=== PATIENT | male | born 1950 ===

== ENCOUNTER 2017-09-29 13:17 | Inpatient (IN) | payer OTHER ==
--- NOTE | 2017-09-29 13:53 | C.PDOC ---
History Of Present Illness Tc Paredes is a 66 year old male, with no significant past medical history, who presents to the emergency department for a head injury at the beginning of August. Patient had a CT scan and was found to have intracranial hemorrhage. His daughter was unhappy with the medical care he was receiving so she brought him here. Patient had a repeat outpatient CT scan that showed a hemorrhage. Patient followed up with Dr. Smith, who sent him yesterday to have an MRI which showed an abnormality and advised patient to come to the ER. PMD: García Smith Time Seen by Provider: 09/29/17 13:44 Chief Complaint (Nursing): Medical Clearance History Per: Patient History/Exam Limitations: no limitations Onset/Duration Of Symptoms: Days (x1 month) Reports Recently: Treated By A Physician Past Medical History Reviewed: Historical Data, Nursing Documentation, Vital Signs Vital Signs: Last Vital Signs Temp 98.1 F 09/29/17 13:23 Pulse 59 L 09/29/17 13:23 Resp 18 09/29/17 13:23 BP 167/83 H 09/29/17 13:23 Pulse Ox 100 09/29/17 17:52 - Medical History PMH: HTN Surgical History: No Surg Hx Family History: States: Unknown Family Hx - Social History Hx Tobacco Use: No (Former smoker) Hx Alcohol Use: No Hx Substance Use: No - Immunization History Hx Tetanus Toxoid Vaccination: No Hx Influenza Vaccination: Yes Hx Pneumococcal Vaccination: No Review Of Systems Constitutional: Positive for: Other (head injury) Physical Exam - Physical Exam Appears: No Acute Distress Skin: Normal Color, Warm, Dry Head: Atraumatic, Normacephalic Eye(s): bilateral: Normal Inspection, PERRL, EOMI Neck: Normal ROM, Supple Chest: Symmetrical Cardiovascular: Rhythm Regular Respiratory: Normal Breath Sounds, No Wheezing Gastrointestinal/Abdominal: Normal Exam, Soft, No Tenderness Back: Normal Inspection, No CVA Tenderness Extremity: Normal ROM, No Deformity, No Swelling Neurological/Psych: Oriented x3 (alert), Normal Speech, Normal Motor, Normal Sensation, Other (no focal deficits.) Gait: Steady ED Course And Treatment - Laboratory Results Result Diagrams: 09/29/17 15:16 09/29/17 15:16 Lab Interpretation: Normal O2 Sat by Pulse Oximetry: 100 (RA) Pulse Ox Interpretation: Normal - CT Scan/US MRI brain with contrast Other Rad Studies (CT/US): Read By Radiologist, Radiology Report Reviewed CT/US Interpretation: Accession No. : [id number]. Patient Name / ID : BALA HE / [id number]. Exam Date : 09/29/2017 16:39:48 ( Approved ). Study Comment : Sex / Age : M / 66Y. Creator : Cary Moyer MD. Dictator : Cary Moyer MD. Filter Tip Inspector : Market Research Intern : Cary Moyer MD. Approver2 : Report Date : 09/29/2017 17:33:14. My Comment : . PROCEDURE: MRI BRAIN WITH AND WITHOUT CONTRAST. HISTORY: multiple intracranial hemorrhages. COMPARISON: MRI brain without contrast from 2017. TECHNIQUE: Multiplanar, multisequence MR images of the brain were obtained with and without intravenous contrast enhancement. 14 mL Omniscan was injected intravenously. FINDINGS: HEMORRHAGE: None. DWI: No evidence of an acute or early subacute infarction. BRAIN PARENCHYMA: Since the prior examination, there has been no significant interval change in the size and appearance of multifocal T1 and T2 hyperintense peripheral masses with peripheral T2 hypo intense rim and mild surrounding vasogenic edema in the frontal and temporal lobes, the largest in the left frontal lobe. These masses demonstrate restricted diffusion. There is also subcortical T2/FLAIR hyperintensity in the left frontal lobe and right inferior medial frontal lobe most compatible with old injury. ENHANCEMENT: Enhancement of the multifocal frontal and temporal lobe masses please limited due to intrinsic T1 hyperintensity however these appear to enhance on post-contrast sequences. There is also diffuse smooth dural enhancement. VENTRICLES: There is mild age- related global parenchymal volume loss with proportionate enlargement of the ventricles and cortical sulci. No hydrocele. CRANIUM: There is normal bone marrow signal pattern. ORBITS: Grossly unremarkable. PARANASAL SINUSES/ MASTOIDS: There are bilateral mastoid effusions. The paranasal sinuses are predominantly clear. VASCULAR SYSTEM: Skull base flow voids intact. OTHER FINDINGS: None . IMPRESSION: Apparent mild enhancement in the multifocal frontal and temporal lobe masses, although enhancement is limited due to intrinsic T1 hyperintensity related to subacute hemorrhage. The differential considerations include hemorrhagic metastasis, subacute hypertensive hemorrhages , cavernous malformations, and amyloidosis are also differential considerations. Pyogenic abscess is, lymphoma and toxoplasmosis or less likely differential considerations. Mild diffuse dural enhancement may be reactive however dural metastasis and meningitis are other differential considerations. Reevaluation Time: 18:24 Reassessment Condition: Unchanged - Physician Consult Information Time Consulting Physician Contacted: 18:24 Physician Contacted: Jose Cote Outcome Of Conversation: Case also discussed with Dr Welch. Patient to be admitted for work up of etiology of brain lesions. Medical Decision Making Medical Decision Making: Initial Impression: Head injury Initial Plan: --Reevaluation Disposition - Disposition Disposition: HOSPITALIZED Disposition Time: 18:25 Condition: FAIR - POA Present On Arrival: None - Clinical Impression Clinical Impression: Mass of brain - Scribe Statement Prasanna Bedolla
[2017-09-29 15:20] LABS: BASO # 0.1 K/uL (0.0-0.2); BASO % 1.1 % (0.0-2.0); EOS # 0.1 K/uL (0.0-0.7); EOS % 2.7 % (0.0-4.0); HEMOGLOBIN 15.1 g/dL (12.0-18.0); LYMPH # 1.3 K/uL (1.0-4.3); LYMPH % 25.8 % (20.0-40.0); MEAN CELL VOLUME 95.4 fL (80.0-94.0); MEAN CORPUSCULAR HEMOGLOBIN 32.3 pg (27.0-31.0); MEAN CORPUSCULAR HGB CONC 33.8 g/dL (33.0-37.0); MEAN PLATELET VOLUME 8.5 fL (7.2-11.7); MONO # 0.5 K/uL (0.0-0.8); MONO % 9.2 % (0.0-10.0); NEUT # 3.2 K/uL (1.8-7.0); NEUT % 61.2 % (50.0-75.0); RBC 4.67 Mil/uL (4.40-5.90); RED CELL DISTRIBUTION WIDTH 13.8 % (11.5-14.5); WHITE BLOOD COUNT 5.2 K/uL (4.8-10.8)
[2017-09-29 15:32] LABS: ALB/GLOB RATIO 1.4 (1.0-2.1); ALBUMIN 4.4 g/dL (3.5-5.0); ALT/SGPT 40 U/L (21-72); AST/SGOT 19 U/L (17-59); BLOOD UREA NITROGEN 10 mg/dL (9-20); CALCIUM 9.5 mg/dl (8.6-10.4); GFR AFRICAN-AMERICAN > 60; GFR NON-AFRICAN AMERICAN > 60
[2017-09-29] MEDS ORDERED: Gadodiamide 287 MG/ML VIAL (15ML) IV ONE (16:53)
--- NOTE | 2017-09-29 17:34 | MRI ---
PROCEDURE: MRI BRAIN WITH AND WITHOUT CONTRAST HISTORY: multiple intracranial hemorrhages COMPARISON: MRI brain without contrast from 09/28/2017. TECHNIQUE: Multiplanar, multisequence MR images of the brain were obtained with and without intravenous contrast enhancement. 14 mL Omniscan was injected intravenously. FINDINGS: HEMORRHAGE: None DWI: No evidence of an acute or early subacute infarction. BRAIN PARENCHYMA: Since the prior examination, there has been no significant interval change in the size and appearance of multifocal T1 and T2 hyperintense peripheral masses with peripheral T2 hypo intense rim and mild surrounding vasogenic edema in the frontal and temporal lobes, the largest in the left frontal lobe. These masses demonstrate restricted diffusion. There is also subcortical T2/FLAIR hyperintensity in the left frontal lobe and right inferior medial frontal lobe most compatible with old injury. ENHANCEMENT: Enhancement of the multifocal frontal and temporal lobe masses please limited due to intrinsic T1 hyperintensity however these appear to enhance on post-contrast sequences. There is also diffuse smooth dural enhancement. VENTRICLES: There is mild age-related global parenchymal volume loss with proportionate enlargement of the ventricles and cortical sulci. No hydrocele CRANIUM: There is normal bone marrow signal pattern. ORBITS: Grossly unremarkable. PARANASAL SINUSES/MASTOIDS: There are bilateral mastoid effusions. The paranasal sinuses are predominantly clear. VASCULAR SYSTEM: Skull base flow voids intact. OTHER FINDINGS: None . IMPRESSION: Apparent mild enhancement in the multifocal frontal and temporal lobe masses, although enhancement is limited due to intrinsic T1 hyperintensity related to subacute hemorrhage. The differential considerations include hemorrhagic metastasis, subacute hypertensive hemorrhages, cavernous malformations, and amyloidosis are also differential considerations. Pyogenic abscess is, lymphoma and toxoplasmosis or less likely differential considerations. Mild diffuse dural enhancement may be reactive however dural metastasis and meningitis are other differential considerations.
[2017-09-29] MEDS ORDERED: DiphenhydrAMINE 50 mg/ml Inj IVP PRN (21:26)
[2017-09-29] MEDS: Dexamethasone 4 mg/1 ml IVP SCH (22:13)
[2017-09-30 08:13] LABS: INR 1.1; PROTHROMBIN TIME 12.1 SECONDS (9.7-12.2)
[2017-09-30 08:14] LABS: ALB/GLOB RATIO 1.4 (1.0-2.1); ALBUMIN 4.4 g/dL (3.5-5.0); ALT/SGPT 35 U/L (21-72); AST/SGOT 23 U/L (17-59); BLOOD UREA NITROGEN 10 mg/dL (9-20); GFR AFRICAN-AMERICAN > 60; GFR NON-AFRICAN AMERICAN > 60
[2017-09-30 08:22] LABS: BASO % 0.3 % (0.0-2.0); EOS % 0.2 % (0.0-4.0); HEMOGLOBIN 15.2 g/dL (12.0-18.0); LYMPH # 0.9 K/uL (1.0-4.3); MEAN CELL VOLUME 95.7 fL (80.0-94.0); MEAN CORPUSCULAR HEMOGLOBIN 33.6 pg (27.0-31.0); MEAN CORPUSCULAR HGB CONC 35.1 g/dL (33.0-37.0); MEAN PLATELET VOLUME 8.7 fL (7.2-11.7); MONO # 0.3 K/uL (0.0-0.8); MONO % 3.8 % (0.0-10.0); NEUT % 83.7 % (50.0-75.0); NRBC % 0.1 % (0.0-2.0); RBC 4.54 Mil/uL (4.40-5.90); WHITE BLOOD COUNT 7.2 K/uL (4.8-10.8)
--- NOTE | 2017-09-30 09:24 | MRI ---
PROCEDURE: Magnetic Resonance Angiography Brain HISTORY: brain masses COMPARISON: None available. TECHNIQUE: 3D time of flight MR angiography of the intracranial arteries was performed. Rotating maximum intensity projection images were generated. FINDINGS: INTERNAL CAROTID ARTERIES: Small infundibulum is seen related to a tiny cavernous right ICA branch. The skull base, petrous, cavernous and supraclinoid segments are bilaterally widely patient. ANTERIOR CEREBRAL ARTERIES: Unremarkable. A1 and A2 segments are widely patent. Smaller distal branches unremarkable, as visualized. MIDDLE CEREBRAL ARTERIES: Unremarkable. M1 and M2 segments are widely patent. Perisylvian branches grossly symmetric. POSTERIOR CIRCULATION: Basilar Artery: Unremarkable. Distal Vertebral Arteries: A small fenestration is seen related to the distal left vertebral artery. Posterior Cerebral Arteries: Unremarkable. Posterior Inferior Cerebellar Arteries: Unremarkable. ANEURYSM/ VASCULAR MALFORMATIONS: None. OTHER FINDINGS: None. IMPRESSION: Unremarkable MR angiography of the brain.
[2017-09-30] MEDS: Dexamethasone 4 mg/1 ml IVP SCH (10:11)
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
[2017-09-30] MEDS ORDERED: Iohexol 240 (50 ml) PO ONE ×2 (13:15→14:15)
[2017-09-30 15:56] VITALS: BP 120/75; PULSE 68; RESP 18; TEMP 97.9; O2SAT 97
[2017-09-30] MEDS ORDERED: Iodixanol 320 MG/ML 100 ML BOTTLE IV ONE (16:45)
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
--- NOTE | 2017-09-30 17:54 | CT ---
PROCEDURE: CT Chest, Abdomen and Pelvis with intravenous contrast HISTORY: r/o malignancy COMPARISON: None. TECHNIQUE: IV dose administered: 100 cc Visipaque 320. Radiation dose: Total exam DLP = 675.02 mGy-cm. This CT exam was performed using one or more of the following dose reduction techniques: Automated exposure control, adjustment of the mA and/or kV according to patient size, and/or use of iterative reconstruction technique. FINDINGS: CT CHEST WITH CONTRAST: LUNGS: Clear. No nodule, mass or consolidation. MEDIASTINUM: Unremarkable. Normal caliber aorta and pulmonary arterial trunk. No aortic dissection. Normal size heart. LYMPH NODES: Unremarkable. PLEURA: Unremarkable. No pneumothorax. No pleural fluid. BONES: Multilevel degenerative change. No evidence of bony metastatic disease. OTHER FINDINGS: None. CT ABDOMEN AND PELVIS: LIVER: Hepatic steatosis. No focal masses. No intrahepatic bile duct dilatation or perihepatic ascites. GALLBLADDER AND BILE DUCTS: Unremarkable. PANCREAS: Unremarkable. No gross lesion or ductal dilatation. SPLEEN: Unremarkable. ADRENALS: Unremarkable. No mass. KIDNEYS AND URETERS: Unremarkable. No hydronephrosis. No solid mass. VASCULATURE: Unremarkable. No aortic aneurysm. BOWEL: Gastric distention without obstructing lesion. Constipation without fecal impaction or obstruction. Diverticulosis without an acute inflammatory component or other associated pathologic process. APPENDIX: Normal appendix. PERITONEUM: Unremarkable. No free fluid. No free air. LYMPH NODES: Unremarkable. No enlarged lymph nodes. BLADDER: Unremarkable. REPRODUCTIVE: Unremarkable. BONES: No acute fracture. Degenerative changes, hypertrophic bar formation L5-S1 extending to the left of the midline producing narrowing of the exiting neural foramen. OTHER FINDINGS: None. IMPRESSION: No significant or acute findings to account for/ related to the clinical presentation. Additional benign and/or incidental findings described above.
--- NOTE | 2017-09-30 18:04 | CP.PCM.PN ---
Subjective - Date & Time of Evaluation Date of Evaluation: 09/30/17 Time of Evaluation: 07:00 - Subjective Subjective: afeb wants to sign AMA Objective - Vital Signs/Intake and Output Vital Signs (last 24 hours): Temp Pulse Resp BP Pulse Ox 97.9 F 68 18 120/75 97 09/30/17 15:55 09/30/17 15:55 09/30/17 15:55 09/30/17 15:55 09/30/17 15:55 Intake and Output: 09/30/17 09/30/17 06:59 18:59 Intake Total 200 Balance 200 - Medications Medications: Current Medications Dexamethasone (Decadron Inj) 4 mg IVP Q12H [facility] Last Admin: 09/30/17 10:11 Dose: 4 mg Diphenhydramine HCl (Benadryl) 25 mg IVP Q8H PRN PRN Reason: Sleep Last Admin: 09/29/17 22:13 Dose: 25 mg Ceftriaxone Sodium 1 gm/ (Sodium Chloride) 100 mls @ 100 mls/hr IVPB DAILY [facility] PRN Reason: Protocol Last Admin: 09/30/17 10:12 Dose: 100 mls/hr Levetiracetam (Keppra) 500 mg PO BID [facility] Last Admin: 09/30/17 17:37 Dose: Not Given Lorazepam (Ativan) 2 mg IVP Q6H PRN PRN Reason: Anxiety Last Admin: 09/30/17 15:11 Dose: 2 mg Losartan Potassium (Cozaar) 50 mg PO DAILY [facility] Last Admin: 09/30/17 10:11 Dose: 50 mg Pneumococcal Polyvalent Vaccine (Pneumovax 23 Vaccine) 0.5 ml IM .ONCE ONE Stop: 10/02/17 10:01 - Labs Labs: 09/30/17 07:51 09/30/17 07:51 PT 12.1 SECONDS (9.7-12.2) 09/30/17 07:51 INR 1.1 09/30/17 07:51 APTT 35 SECONDS (21-34) H 09/30/17 07:51 - Constitutional Appears: Non-toxic, Chronically Ill - Head Exam Head Exam: NORMOCEPHALIC - Eye Exam Eye Exam: PERRL - ENT Exam ENT Exam: Mucous Membranes Dry - Neck Exam Neck Exam: absent: Lymphadenopathy - Respiratory Exam Respiratory Exam: Decreased Breath Sounds - Cardiovascular Exam Cardiovascular Exam: REGULAR RHYTHM - GI/Abdominal Exam GI & Abdominal Exam: Distended, Soft - Rectal Exam Rectal Exam: Deferred - Exam Exam: NORMAL INSPECTION Assessment and Plan (1) Mass of brain Status: Acute - Assessment and Plan (Free Text) Assessment: AMA follow up PMD
--- NOTE | 2017-09-30 18:17 | CT ---
PROCEDURE: CT HEAD WITHOUT CONTRAST. HISTORY: intracranial hemorrhages COMPARISON: 09/29/2017 MRI brain Summary of findings on the comparison examination: Apparent mild enhancement in the multifocal frontal and temporal lobe masses, although enhancement is limited due to intrinsic T1 hyperintensity related to subacute hemorrhage. TECHNIQUE: Axial computed tomography images were obtained through the head/brain without intravenous contrast. Coronal and sagittal reconstructed images. Radiation dose: Total exam DLP = 1122.95 mGy-cm. This CT exam was performed using one or more of the following dose reduction techniques: Automated exposure control, adjustment of the mA and/or kV according to patient size, and/or use of iterative reconstruction technique. FINDINGS: HEMORRHAGE: No intracranial hemorrhage. BRAIN: Left frontal mass, associated vasogenic edema. Left temporal mass with associated edema. No atrophy or chronic microvascular ischemic changes. VENTRICLES: Unremarkable. No hydrocephalus. CALVARIUM: Unremarkable. PARANASAL SINUSES: Unremarkable as visualized. No significant inflammatory changes. MASTOID AIR CELLS: Unremarkable as visualized. No inflammatory changes. OTHER FINDINGS: None. IMPRESSION: Multiple bilateral intra-axial masses better visualized on recent MRI. No evidence of acute intracranial hemorrhage, edema or mass effect
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
[2017-10-02] MEDS ORDERED: Pneumococcal 23-Valent Vaccine IM ONE (10:00)
== END 2017-09-30 18:45 | disposition left against medical advice (07) | DRG 72 ==
LOC: EDBD 13:17 → C.ER 13:17 → C.9E 18:23 → C.5S 19:27
PROVIDERS: ADMIT Internal Medicine Critical Care Medicine; ATTEND Internal Medicine Critical Care Medicine
DX: G93.9 Disorder of brain, unspecified (principal); I10 Essential (primary) hypertension; R26.0 Ataxic gait; Z87.891 Personal history of nicotine dependence; Z86.73 Personal history of transient ischemic attack (TIA), and cerebral infarction without residual deficits; Z80.8 Family history of malignant neoplasm of other organs or systems